=== PATIENT | female | born 1950 | race Caucasian/White ===

== ENCOUNTER 2017-07-07 08:08 | Emergency (ER) | payer MEDICARE, OTHER ==
[~2017-07-07] VITALS: Ht 157.5 cm; Wt 77.1 kg
[2017-07-07 08:12] VITALS: BP 128/85
--- NOTE | 2017-07-07 08:25 | NUR ---
X-RAY L FOOT AT BEDSIDE.
== END 2017-07-07 08:58 | disposition home or self-care (01) ==
LOC: ER 08:10
DX: S99.912A Unspecified injury of left ankle, initial encounter (principal); E78.5 Hyperlipidemia, unspecified; F32.9 Major depressive disorder, single episode, unspecified; Z88.0 Allergy status to penicillin; X58.XXXA Exposure to other specified factors, initial encounter; Y93.01 Activity, walking, marching and hiking; Y92.89 Other specified places as the place of occurrence of the external cause; Y99.8 Other external cause status
CPT/HCPCS: 73610-TC; A4606; Z7610